=== PATIENT | female | born 1965 | race Caucasian/White ===

== ENCOUNTER → 2019-08-27 15:14 | Outpatient (CLI) | payer BC, SELFPAY ==
--- NOTE | 2019-08-27 15:14 | CT_ITS ---
PROCEDURE: CT SINUS WO CON CLINICAL HISTORY: SNORING, DEVIATED SEPTUM COMPARISON: No exams were available for comparison TECHNIQUE: Axial images obtained with sagittal and coronal reformats. All CT scans at the facility use one or more dose reduction, viz: automated exposure control, ma/kV adjustment per patient size (including targeted exams where dose is matched to indication, i.e. head), or iterative reconstruction technique. FINDINGS: No air-fluid levels are sinus masses. There is minimal mucosal thickening of the right ethmoid sinus posteriorly. No mastoid effusion. The ostiomeatal complexes are patent. There is an old right nasal bone fracture with mild rightward nasal septal deviation anteriorly. There is a small septal spur inferiorly. The inferior aspect and anterior aspect of the membranous nasal septum projects toward the left causing narrowing of the left nasal canal. The orbits have an unremarkable appearance as do the TMJs. Small nodes are present in the neck nonspecific IMPRESSION: There is an old right nasal fracture with rightward nasal septal deviation anteriorly. The inferior aspect of the membranous septum anteriorly is deviated toward the left. Dictated by: Jasen Roth MD 08/27/2019 17:22 Electronically signed by Jasen Roth MD in [place] 08/27/2019 17:22
== END ==
PROVIDERS: PCP Family Medicine; Visit Provider Otolaryngology
DX: S03.1XXA Dislocation of septal cartilage of nose, initial encounter (principal); R06.83 Snoring
CPT/HCPCS: 70486

== ENCOUNTER 2022-01-18 16:30 | Emergency (ER) | payer BC, SELFPAY ==
[2022-01-18 16:45] VITALS: BP 123/82; PULSE 72; RESP 18; TEMP 37.2; O2SAT 97; BMI 27.1
--- NOTE | 2022-01-18 17:03 | HMH.EDUTC ---
[facility] [place] Impression: Contact dermatitis Qualifiers: Contact dermatitis type: allergic Contact dermatitis trigger: unspecified trigger Qualified Code(s): L23.9 - Allergic contact dermatitis, unspecified cause Disposition: Home, Self-Care Condition on Discharge: Good Instructions: Contact Dermatitis, DI for Contact Dermatitis Additional Instructions: identify and avoid contact with the offending substance. Don't start the oral steroids until tomorrow. Follow up with your regular doctor. GO TO THE ER FOR ANY WORSENING SYMPTOMS OR CONCERNS Prescriptions: methylPREDNISolone [Medrol] 4 mg PO DIRECTED 6 Days #21 packet Transmission Status: Received by [id number] Referrals: Manjinder Velasco MD [Primary Care Provider] - Time of Disposition: 17:44 Medical Decision Making - Medical Records Medical records reviewed: No: I reviewed the patient's medical records. - Bigg Inquiry Pt receiving controlled substance: No Vital Signs: 01/18/22 16:45 01/18/22 17:42 Temperature 99 F 99 F Temperature Source Oral Oral Pulse Rate 70 Pulse Rate [Left Radial] 72 Respiratory Rate 18 18 Blood Pressure 121/80 Blood Pressure [Right Arm] 123/82 Blood Pressure Mean [Right Arm] 95 02 Sat by Pulse Oximetry 97 Oxygen Delivery Method Room Air Orders (Tests/Meds): ED MEDICATIONS Discontinued Medications Generic Name Dose Route Start Last Admin Trade Name Cari PRN Reason Stop Dose Admin Methylprednisolone Sodium Succinate 125 mg 01/18/22 17:22 01/18/22 17:26 Methylprednisolone Sod Succ 125mg Vial IM 01/18/22 17:23 125 mg ONCE ONE Administration [facility] [place] - General Stated complaint: Rash on face Time Seen by Provider: 01/18/22 17:03 - History of Present Illness Provider Complaint: She states that for the past 3 days she has had irritation of her skin on the right side of her forehead. She states that it itches. She thinks that she is allergic to the latex paint that she recently painted her house with. - Related Data Previous Rx's Medication Instructions Recorded fluticasone propionate 50 1 spray INTRANASAL DAILY #9.9 ml 08/12/19 mcg/actuation nasal spray,suspension montelukast 10 mg tablet 10 mg PO DAILY 30 Days #30 tab 08/12/19 methylPREDNISolone [Medrol] 4 mg PO DIRECTED 6 Days #21 01/18/22 packet Allergies Allergy/AdvReac Type Severity Reaction Status Date / Time PENICILLIN Allergy Intermediate I-RASH Uncoded 09/04/19 15:44 [facility] History - Hepatitis A Screen Attestation statement:: This patient has been screened for Hepatitis A risk factors. I have reviewed the patient's past medical history: Yes Other Surgeries: Yes: Other Amputation: No Fractures: No Comment: TVT. BLADDER SURGERY - Social History Smoking Status: Never smoker Alcohol Intake: never Alcohol Intake Frequency:: 0-2 drinks per day Substance Use Type: denies use Occupational Status: employed Housing: house Household Members: family Family Hx:: No significant family history ROS Obtained: Yes All systems reviewed & no additional complaints - Constitutional Constitutional: Denies chills, Denies fever(s) - Eyes Eyes: Denies blind spots, Denies blurry vision, Denies change in vision, Denies diplopia, Denies eye discharge, Denies itchy eyes - Musculoskeletal Musculoskeletal: Denies joint pain, Denies back pain, Denies neck pain - Integumentary/Breasts Skin/Breast: Reports as per HPI - Neurologic Neurologic: Denies tingling/numbness/burning sensations Physical Exam - General General appearance: alert, in no apparent distress - Head Head exam: atraumatic, normocephalic, normal inspection - Eye Eye exam: Present: normal appearance, PERRL, EOMI - ENT ENT exam: Present: normal exam, normal oropharynx, mucous membranes moist, TM's normal bilaterally, normal external ear exam - Neck Neck exam: Present: normal inspection, full ROM, tra
[2022-01-18 17:42] VITALS: BP 121/80; PULSE 70; RESP 18; TEMP 37.2; O2SAT 97
== END 2022-01-18 17:43 | disposition home or self-care (01) ==
PROVIDERS: Emergency Provider Nurse Practitioner Family; PCP Family Medicine
DX: L23.9 Allergic contact dermatitis, unspecified cause (principal)
CPT/HCPCS: 96372; 99212; G0463

== ENCOUNTER → 2022-06-27 11:52 | Outpatient (CLI) | payer BC, SELFPAY ==
[2022-06-27 18:34] LABS: Adenovirus,PCR Not Detected (NotDetected); Bordetella Pertussis Not Detected (NotDetected); Chlamydophila Pneumoniae, PCR Not Detected (NotDetected); Coronavirus 19, PCR Not Detected (NotDetected); Coronavirus 229E Not Detected (NotDetected); Coronavirus NL63 Not Detected (NotDetected); Coronavirus OC43 Not Detected (NotDetected); Coronovirus HKU1,PCR Not Detected (NotDetected); Human Metapneumovirus Not Detected (NotDetected); Influenza A, PCR Not Detected (NotDetected); Influenza AH1, 2009 Not Detected (NotDetected); Influenza AH1, PCR Not Detected (NotDetected); Influenza AH3,PCR Not Detected (NotDetected); Influenza B, PCR Not Detected (NotDetected); Mycoplasma Pneumoniae, PCR Not Detected (NotDetected); Parainfluenza 1, PCR Not Detected (NotDetected); Parainfluenza 2, PCR Not Detected (NotDetected); Parainfluenza 3, PCR Not Detected (NotDetected); Parainfluenza 4, PCR Not Detected (NotDetected); Respiratory Syncytial Virus Not Detected (NotDetected); Rhinovirus/Enterovirus Not Detected (NotDetected)
[2022-06-27 18:55] LABS: Basophils # 0.1 K/mm3 (0-0.2); Basophils % 0.6 % (0.1-2.0); Eosinophils # 0.2 K/mm3 (0.0-0.4); Eosinophils % 1.9 % (0.1-12.0); Hematocrit 41.1 % (37.0-47.0); Hemoglobin 13.1 g/dL (12.2-16.2); Lymphocytes # 2.1 K/mm3 (0.7-4.5); Lymphocytes % 23.3 % (10-50); Mean Corpuscular HGB Conc 31.8 g/dL (31.8-35.4); Mean Corpuscular Volume 97.6 fl (81-99); Monocytes # 0.5 K/mm3 (0.1-1.0); Monocytes % 5.8 % (1.7-9.3); Neutrophils # 6.1 K/mm3 (1.8-7.8); Neutrophils % 68.5 % (37.0-80.0); Platelet Count 317 K/mm3 (142-424); Red Blood Count 4.21 M/mm3 (4.20-5.40); Red Cell Distribution Width 12.6 % (11.5-17.5); White Blood Count 8.9 K/mm3 (4.8-10.8)
== END ==
PROVIDERS: PCP Nurse Practitioner; Visit Provider Nurse Practitioner
DX: J06.9 Acute upper respiratory infection, unspecified (principal)
CPT/HCPCS: 85025; 87581; 87632; 87798; C9803; U0003; U0005

== ENCOUNTER 2023-10-08 23:05 | Outpatient (CLI) | payer BC, SELFPAY ==
[2023-10-08 18:41] LABS: Alanine Aminotransferase 17 U/L (12-78); Albumin Level 4.6 g/dl (3.5-5.0); Albumin/Globulin Ratio 1.8 (1.1-1.8); Alkaline Phosphatase 73 U/L (38-126); Aspartate Amino Transferase 31 U/L (14-36); Bilirubin,Total 1.1 mg/dl (0.2-1.3); Blood Urea Nitrogen 12 mg/dl (7-17); Calcium 9.8 mg/dl (8.4-10.2); Carbon Dioxide 27 mmol/L (22.0-30.0); Chloride 104 mmol/L (98-107); Chol/HDL Ratio 3.2 (1-3.5); Cholesterol 224 mg/dl (140-200); Estimated Glomerular Filt Rate 87 ml/min (>60); GFR (African American) 105 ML/MIN (>60); Globulin 2.5 g/dL (1.3-3.2); Glucose 96 mg/dl (74-100); HDL Cholesterol 70 mg/dl (40-60); Sodium 139 mmol/L (136-145); Total Protein,Serum 7.1 g/dl (6.3-8.2); Triglycerides 56 mg/dl (30-150); VLDL Cholesterol 11 mg/dL (0-40)
[2023-10-08 18:45] LABS: Basophils # 0.1 K/mm3 (0-0.2); Eosinophils # 0.2 K/mm3 (0.0-0.4); Eosinophils % 2.5 % (0.1-12.0); Hematocrit 41.8 % (37.0-47.0); Hemoglobin 13.4 g/dL (12.2-16.2); Lymphocytes # 2.2 K/mm3 (0.7-4.5); Lymphocytes % 36.3 % (10-50); Mean Corpuscular HGB Conc 32.2 g/dL (31.8-35.4); Mean Corpuscular Hemoglobin 31.9 pg (27.0-31.2); Mean Corpuscular Volume 99.3 fl (81-99); Mean Platelet Volume 9.1 fl (7.4-10.4); Monocytes # 0.4 K/mm3 (0.1-1.0); Monocytes % 6.1 % (1.7-9.3); Neutrophils # 3.2 K/mm3 (1.8-7.8); Neutrophils % 54.1 % (37.0-80.0); Platelet Count 264 K/mm3 (142-424); Red Blood Count 4.21 M/mm3 (4.20-5.40); Red Cell Distribution Width 12.8 % (11.5-17.5); White Blood Count 5.9 K/mm3 (4.8-10.8)
[2023-10-08 18:52] LABS: Direct LDL Cholesterol 102.61 mg/dL (100-129)
[2023-10-08 19:16] LABS: Thyroid Stimulating Hormone 0.87 uIU/mL (0.465-4.68)
[2023-10-08 20:47] LABS: Hemoglobin A1C 5.4 % (4.0-6.0)
== END 2023-10-08 23:59 ==
LOC: LAB.DROPOF 23:05
PROVIDERS: PCP Nurse Practitioner; Visit Provider Nurse Practitioner
DX: I10 Essential (primary) hypertension (principal); Z79.899 Other long term (current) drug therapy
CPT/HCPCS: 80053; 80061; 83036; 84443; 85025

== ENCOUNTER 2023-12-03 10:54 | Outpatient (CLI) | payer BC, SELFPAY ==
[2023-12-03 19:35] LABS: Basophils # 0.1 K/mm3 (0-0.2); Basophils % 1.3 % (0.1-2.0); Eosinophils # 0.2 K/mm3 (0.0-0.4); Eosinophils % 2.8 % (0.1-12.0); Hematocrit 41.7 % (37.0-47.0); Hemoglobin 13.3 g/dL (12.2-16.2); Lymphocytes # 2.7 K/mm3 (0.7-4.5); Lymphocytes % 44.1 % (10-50); Mean Corpuscular HGB Conc 31.9 g/dL (31.8-35.4); Mean Corpuscular Hemoglobin 31.3 pg (27.0-31.2); Mean Corpuscular Volume 98.4 fl (81-99); Mean Platelet Volume 8.8 fl (7.4-10.4); Monocytes # 0.4 K/mm3 (0.1-1.0); Monocytes % 5.9 % (1.7-9.3); Neutrophils # 2.8 K/mm3 (1.8-7.8); Platelet Count 294 K/mm3 (142-424); Red Blood Count 4.24 M/mm3 (4.20-5.40); Red Cell Distribution Width 12.9 % (11.5-17.5); White Blood Count 6.1 K/mm3 (4.8-10.8)
[2023-12-03 20:04] LABS: Alanine Aminotransferase 16 U/L (12-78); Albumin Level 4.3 g/dl (3.5-5.0); Albumin/Globulin Ratio 1.7 (1.1-1.8); Alkaline Phosphatase 80 U/L (38-126); Anion Gap 11.8 mEq/L (5-15); Aspartate Amino Transferase 26 U/L (14-36); Bilirubin,Total 0.6 mg/dl (0.2-1.3); Blood Urea Nitrogen 11 mg/dl (7-17); Calcium 9.7 mg/dl (8.4-10.2); Carbon Dioxide 30 mmol/L (22.0-30.0); Chloride 101 mmol/L (98-107); Estimated Glomerular Filt Rate 74 ml/min (>60); GFR (African American) 90 ML/MIN (>60); Globulin 2.6 g/dL (1.3-3.2); Glucose 95 mg/dl (74-100); Potassium 4.8 mmoL/L (3.5-5.1); Sodium 138 mmol/L (136-145); Total Protein,Serum 6.9 g/dl (6.3-8.2)
[2023-12-03 20:20] LABS: Free T4 (Free Thyroxine) 1.07 ng/dl (0.78-2.19)
[2023-12-03 20:29] LABS: Thyroid Stimulating Hormone 0.75 uIU/mL (0.465-4.68)
== END 2023-12-03 23:59 | disposition home or self-care (01) ==
LOC: LAB.DROPOF 12-05 10:55
PROVIDERS: PCP Nurse Practitioner; Visit Provider Nurse Practitioner
DX: R42 Dizziness and giddiness (principal); I10 Essential (primary) hypertension
CPT/HCPCS: 80053; 84439; 84443; 85025; 87086

== ENCOUNTER 2023-12-03 11:17 | Outpatient (CLI) | payer BC, SELFPAY | END 2023-12-03 23:59 | disposition home or self-care (01) | LOC: LAB.DROPOF 12-05 11:18 | PROVIDERS: PCP Nurse Practitioner; Visit Provider Nurse Practitioner | DX: I10 Essential (primary) hypertension (principal); R42 Dizziness and giddiness; R30.0 Dysuria ==

== ENCOUNTER 2025-01-05 11:35 | Outpatient (CLI) | payer BC, SELFPAY ==
[2025-01-05 19:31] LABS: Hematocrit 39.7 % (37.0-47.0); Hemoglobin 12.6 g/dL (12.2-16.2); Immature Granulocytes % 0.2 %; Mean Corpuscular HGB Conc 31.7 g/dL (31.8-35.4); Mean Corpuscular Hemoglobin 30.8 pg (27.0-31.2); Mean Corpuscular Volume 97.1 fl (81-99); Nucleated Red Blood Cells % 0 %; Platelet Count 236 K/mm3 (142-424); Red Blood Count 4.09 M/mm3 (4.20-5.40); Red Cell Distribution Width-SD 45.1 fL; White Blood Count 4.8 K/mm3 (4.8-10.8)
[2025-01-05 20:10] LABS: Alanine Aminotransferase 15 U/L (12-78); Albumin Level 4.6 g/dl (3.5-5.0); Albumin/Globulin Ratio 2.0 (1.1-1.8); Alkaline Phosphatase 75 U/L (38-126); Anion Gap 17.2 mEq/L (5-15); Aspartate Amino Transferase 24 U/L (14-36); Bilirubin,Total 0.7 mg/dl (0.2-1.3); Blood Urea Nitrogen 14 mg/dl (7-17); Calcium 8.8 mg/dl (8.4-10.2); Carbon Dioxide 26 mmol/L (22.0-30.0); Chloride 101 mmol/L (98-107); Cholesterol 214 mg/dl (140-200); Creatinine,Serum 0.70 mg/dl (0.52-1.04); Estimated Glomerular Filt Rate 86 ml/min (>60); GFR (African American) 104 ML/MIN (>60); Globulin 2.3 g/dL (1.3-3.2); Glucose 87 mg/dl (74-100); HDL Cholesterol 73 mg/dl (40-60); Potassium 4.2 mmoL/L (3.5-5.1); Sodium 140 mmol/L (136-145); Total Protein,Serum 6.9 g/dl (6.3-8.2); Triglycerides 63 mg/dl (30-150)
[2025-01-05 20:38] LABS: Thyroid Stimulating Hormone 0.65 uIU/mL (0.465-4.68)
[2025-01-05 20:54] LABS: Hepatitis C Ab Qual. W/ RFX NEGATIVE (Negative)
[2025-01-05 20:57] LABS: Vitamin B12 261 pg/mL (239-931)
[2025-01-05 22:00] LABS: Hemoglobin A1C 6.0 % (4.0-6.0)
--- OUTSIDE RECORDS SUMMARY | 2025-01-06 07:25 | XMS_ITS ---
Author Organization Unknown Medications Medication Instructions Effective Dates (start - stop) Status lisinopril 20 MG Oral Tablet 202 09-01-30T:00:00.000+00:00 - Completed doxycycline monohydrate 100 MG Oral Capsule [id number]:00:00.000+00:0 0 - Completed nitrofurantoin, macrocrystal s 25 MG / nitrofurantoin, monohydrate 75 MG Oral Capsule [id number]:00:00.000+00:0 0 - Completed lisinopril 20 MG Oral Tablet 202 09-04-28:00:00.000+00:00 - Completed lisinopril 20 MG Oral Tablet 08-13-28:00:00.000+00:00 - Completed fluconazole 150 MG Oral Tablet 2 [id number]:00:00.000+00:00 - Completed cefdinir 300 MG Oral Capsule 08-13-27:00:00.000+00:00 - Completed lisinopril 20 MG Oral Tablet 202 08-10-27:00:00.000+00:00 - Completed {21 (methylprednisolone 4 MG Oral Tablet) } Pack [id number]:00:00.000+00:0 0 - Completed Patient Care team information Name Category Status Period Participants - - Proposed period not known -
--- OUTSIDE RECORDS SUMMARY | 2025-01-06 07:25 | XMS_ITS | Clinical Summary ---
Author [facility] Address [address] [place] [address] Phone Care Team Providers Care Crisis Intervention Counselor Name Role Phone Unavailable Primary Care Provider Unavailabl e Social History Tobacco Use Types Packs/Day Years Used Date Smoking Tobacco: Never Assessed Comments Unknown Sex and Gender Information Value Date Recorded Sex Assigned at Not on file Legal Sex Female 2:41 AM EDT Gender Identity Not on file Sexual Orientation Not on file Plan of Treatment Health Maintenance Due Date Last Done Comments Annual Wellness Exam 1970 DTaP/TDaP/Td (1 - Tdap) 1986 Hepatitis B Vaccine (1 of 3 - 19+ 3-dose series) 1986 Cervical Cancer Screening 02/04/1988 Pap Smear 02/04/1988 HPV/Pap Cotest 1997 Cologuard 02/04/2012 Colon Cancer Screening 02/04/2012 Colonoscopy 02/04/2012 FIT 02/04/2012 Sigmoidoscopy 02/04/2012 Virtual Colonography 02/04/2012 Pneumococcal Vaccine 50+ (1 of 1 - PCV) 2017 Zoster (1 of 2) 2017 COVID-19 Vaccine (2023-2 5 season) 2024 Influenza Vaccine (#1) 2025 Breast Cancer Screening 09/09/2025 09/10/19 24, 08/22/2021, 07/18/2019 Meningococcal B Vaccine Aged Out No l onger eligible based on patient's age to complete this topic Procedures Procedure Name Priority Date/Time Associated Diagnosis Comments MM MAMMO DIGITAL DOMONIQUE SCREEN BILAT Routine 09/10/2023 11:13 AM EDT Encounter for screening mammogram for malignant neoplasm of breast from Last 3 Months or Most Recently Relevant to Health Maintenance Results * MM MAMMO DIGITAL DOMONIQUE SCREEN BILAT (09/10/2023 11:13 AM EDT) Anatomical Region Laterality Modality Breast Bilateral Mammography 09/10/2023 1:24 PM EDT Impressions 09/10/2023 1:24 PM EDT Negative ([id number]) ~ RECOMMENDATION: Routine screening mammogram in 1 year. ~ DISCLAIMER * Any patient with a palpable abnormality, unexplained by breast imaging, should be managed on clinical basis by the attending physician. * Breast imaging has a false negative rate of 15%. * The patient was notified by mail of the results of this examination. *The patient's information was entered into a reminder system with a target due date for the next mammogram, in accordance with the [employer] and the Society of Breast Imaging recommendations. Narrative 09/10/2023 1:24 PM EDT Procedure:MM MAMMO DIGITAL DOMONIQUE SCREEN BILAT ~ Reason for exam: screening, asymptomatic. Z12.31-Encounter for screening mammogram for malignant neoplasm of [id number] ~ MM MAMMO DIGITAL DOMONIQUE SCREEN BILAT Bilateral CC and MLO view(s) were taken. Technologist: RT Reji There are scattered fibroglandular densities. Prior study comparison: Compared with prior studies the most recent being 08/22/21, 07/18/19 No mammographic evidence of malignancy. ~ Procedure Note Ronda Watkins MD - 09/10/2023 Procedure:MM MAMMO DIGITAL DOMONIQUE SCREEN BILAT ~ Reason for exam: screening, asymptomatic. Z12.31-Encounter for screening mammogram for malignant neoplasm of [id number] ~ MM MAMMO DIGITAL DOMONIQUE SCREEN BILAT Bilateral CC and MLO view(s) were taken. Technologist: RT Reji There are scattered fibroglandular densities. Prior study comparison: Compared with prior studies the most recentbeing 08/22/21, 07/18/19 No mammographic evidence of malignancy. ~ IMPRESSION: Negative ([id number]) ~ RECOMMENDATION: Routine screening mammogram in 1 year. ~ DISCLAIMER * Any patient with a palpable abnormality, unexplained by breast imaging, should be managed on clinical basis by the attending physician. * Breast imaging has a false negative rate of 15%. * The patient was notified by mail of the results of this examination. *The patient's information was entered into a reminder system with atarget due date for the next mammogram, in accordance with the [employer] and the Society of Breast Imaging recommendations. us Jesus Pérez MD IMG MAMMOGRAPHY ORDERABLES Fin al Result from Last 3 Months or Most Recently Relevant to Health Maintenance [place] [address] [place] [address]
[2025-01-07 10:12] LABS: Hepatitis B Surface Antigen Negative (Negative)
== END 2025-01-05 23:59 | disposition home or self-care (01) ==
LOC: LAB.DROPOF 01-06 07:22
PROVIDERS: PCP Nurse Practitioner; Visit Provider Nurse Practitioner
DX: Z00.00 Encounter for general adult medical examination without abnormal findings (principal); I10 Essential (primary) hypertension; J30.9 Allergic rhinitis, unspecified; Z13.220 Encounter for screening for lipoid disorders; Z13.1 Encounter for screening for diabetes mellitus; Z11.59 Encounter for screening for other viral diseases
CPT/HCPCS: 80053; 80061; 80074; 82043; 82570; 82607; 83036; 84443; 85025; 87340; 87389